=== PATIENT | female | born 1965 | race African-American/Black ===

== ENCOUNTER 2016-11-22 01:47 | Emergency (ER) ==
--- NOTE | 2016-11-22 02:47 | PROVIDER DOCUMENTATION ---
HPI-General Adult - General Source: patient - History of Present Illness -Gen Adult Nature of Presenting Problems: 51 year old F presents to the ED with a cc of numbness in left calf and left arm , and a "darkness" in left eye. PT states that she took half of a water pill and half of a Klor-con. PT states that she is suppose to take them every day but only takes them once a week. Pt states every time she takes these she always feel funny. Pt states that the reason she took the medications yesterday is because she was short of breath. PT states that she was suppose to follow up with her PCP for labs but did not go. PT states that she is feeling better but is stilling having some numbing sensation to left cheek. Location of Pain/Injury: reports: upper extremity, lower extremity Pain Radiation: reports: no radiation Severity: reports: mild Onset/Duration: reports: last night Timing: reports: still present Modifying Factors: improves with: nothing Associated Symptoms: reports: EENT symptoms, other (numbness) Similar Symptoms Previously?: Yes Recently seen or treated by another doctor?: No <Ladi Pascual - Last Filed: 11/22/16 02:51> <Jimbo Benitez - Last Filed: 11/22/16 05:09> - General Chief Complaint: Numbness Stated Complaint: HEART RACING/BP/ Time Seen by Provider: 11/22/16 01:49 Allergies/Adverse Reactions: Patient Allergies Allergy/AdvReac Type Severity Reaction Status Date / Time Penicillins AdvReac ANAPHYLAXIS Verified 05/31/16 14:15 Home Medications: Home Medication List Medication Instructions Recorded Confirmed Last Taken Type Potassium Chloride E.r. [Klor-Con] 20 meq PO DAILY PRN 04/10/15 05/31/16 History Torsemide 20 mg PO DAILY PRN 04/10/15 05/31/16 05/31/16 07:00 History Irbesartan [Avapro] 300 mg PO DAILY #0 04/12/15 05/31/16 05/30/16 Rx ROSUVAstatin [Crestor] 10 mg PO DAILY 01/30/16 05/31/16 1 Day Ago History Alprazolam [Xanax] 0.5 mg PO DAILY 05/31/16 05/31/16 05/31/16 07:00 History Metoprolol [Lopressor] 50 mg PO DAILY 05/31/16 05/31/16 05/31/16 07:00 History Review of Systems - Adult - REVIEW OF SYSTEMS - ADULT Constitutional: denies: chills, fever Eyes: reports: other ("darkness" to left eye) Ears, Nose, Mouth & Throat: reports: no symptoms reported Cardiovascular: denies: chest pain, palpitations Respiratory: reports: shortness of breath. denies: cough Gastrointestinal: denies: abdominal pain, nausea, vomiting Genitourinary: reports: no symptoms reported Musculoskeletal: reports: no symptoms reported Integumentary: reports: no symptoms reported Neurological: reports: numbness. denies: dizziness/vertigo, headache/migraines , slurred speech Psychiatric: reports: no symptoms reported Endocrine: reports: no symptoms reported Hematologic/Lymphatic: reports: no symptoms reported Allergic/Immunologic: reports: no symptoms reported All Other Systems: Reviewed and Negative <Ladi Pascual - Last Filed: 11/22/16 02:51> Past History - Adult - PAST MEDICAL HISTORY-ADULT Review of Records: reports: Nursing Assessment Review, Medications Reviewed Major Childhood Illnesses: reports: denies history Cardiovascular: reports: CHF, HTN Respiratory: reports: denies history Gastrointestinal: reports: denies history Obstetrical/Gynecological: reports: denies history Genitourinary: reports: denies history Musculoskeletal: reports: other (gout) Neurological: reports: TIA Endocrine/Immune: reports: denies history Other Conditions: reports: denies history - PRIOR SURGERIES/PROCEDURES Surgical/Procedure History: reports: hysterectomy, hernia repair - IMMUNIZATION STATUS Childhood Immunizations: See Nurse Assessment Flu Vaccine: See Nurse Assessment - FAMILY HISTORY Family History: reviewed, not pertinent - SOCIAL HISTORY Smoking: non-smoker Substance Use: none/never Alcohol Use Frequency: never <Ladi Pascual - Last Filed: 11/22/16 02:51> Physical Exam-General - PHYSICAL EXAM-ADULT Initial Vital Signs Reviewed: Yes - CONSTITUTIONAL General Appearance: appears well, alert, no apparent distress, obese - RESPIRATORY Respiratory: chest non-tender, lungs clear, normal breath sounds - CARDIOVASCULAR Cardiovascular: normal peripheral pulses, regular rate, rhythm, no edema - GASTROINTESTINAL (ABDOMEN) Abdominal Exam: non tender, soft - MUSCULOSKELETAL Extremity: normal inspection - SKIN Integumentary: normal color, normal turgor, warm/dry - PSYCHIATRIC Psych/Mental Status: normal mood/affect, normal thought content, normal thought process, oriented x 3 <Ladi Pascual - Last Filed: 11/22/16 02:51> Progress - EKG 1 Time of EKG reading by physician:: 03:30 EKG Read and Signed by:: Jimbo Benitez EKG Interpretation (*Must complete 3 of following elements*): Normal Rate: 66 Rhythm: NSR [place]: normal QRS: normal ID Interval: normal ST Wave: normal Prior EKG Comparison: no prior EKG - CT/MRI 1 CT Study: Head (NEGATIVE) <Jimbo Benitez - Last Filed: 11/22/16 05:09> Departure <Ladi Pascual - Last Filed: 11/22/16 02:51> - Departure Time of Disposition Order: 05:00 Certified Medical Emergency: Emergent <Jimbo Benitez - Last Filed: 11/22/16 05:09> - Departure DIAGNOSIS: TIA (transient ischemic attack) Qualifiers: Transient cerebral ischemia type: carotid artery syndrome (hemispheric) Qualified Code(s): G45.1 - Carotid artery syndrome (hemispheric) Disposition: HOME 01 Condition: Fair Additional Instructions: TAKE ENTERIC COATED ASPIRIN DAILY. SEE FAMILY DOCTOR re CONTROL OF BP AND CHOLESTEROL Attestation - Scribe Verification/Attestation Scribe:: Ladi Pascual Acting as Scribe for:: Jimbo Benitez Scribe documention review:: This chart was documented by a scribe and accurately reflects the service the provider performed and the decisions made by the provider. <Ladi Pascual - Last Filed: 11/22/16 02:51> Physician Attestation - Physician Attestation I, the provider, attest to the following statement:: Jimbo Benitez Physician documentation Attestation:: This documentation recorded by the scribe accurately reflects the service I personally performed and the decisions made by me. <Ladi Pascual - Last Filed: 11/22/16 02:51>
--- NOTE | 2016-11-22 03:32 | EKG Report ---
Test Performed on : 11/22/2016 03:22:30 AM Test Reason : pain Blood Pressure : / mmHG Vent. Rate : 066 BPM Atrial Rate : 066 BPM P-R Int : 174 ms QRS Dur : 080 ms QT Int : 408 ms P-R-T Axes : 064 -13 018 degrees QTc Int : 427 ms Normal sinus rhythm. Normal ECG When compared with ECG of 31-MAY-2016 12:51, No significant change was found Unconfirmed Result
[2016-11-22 03:40] LABS: MANUAL DIFF NEEDED? NO
[2016-11-22 04:00] LABS: BASO% 0.4 % (0.0-0.8); EOS# 0.18 X1000 (0.0-0.7); EOS% 2.3 % (0.0-10.0); HEMATOCRIT 40.1 % (37.0-47.0); HEMOGLOBIN 13.6 g/dL (12.0-16.0); IMM GRAN# 0.01 X1000 (0.0-0.04); IMM GRAN% 0.1 % (0.0-0.5); LYMPH# 2.63 X1000 (1.2-3.4); LYMPH% 33.6 % (20.5-51.1); MCH 29.9 PG (27-31); MCHC 33.9 g/dL (33-37); MCV 88.1 FL (81-99); MONO# 0.71 X1000 (0.11-0.59); MONO% 9.1 % (1.7-9.3); MPV 9.5 FL (7.4-10.4); NEUT% 54.5 % (42.2-75.2); PLT 290 X1000 (130-400); RBC 4.55 XMIL (4.2-5.4)
[2016-11-22] MEDS ORDERED: ASPIRIN PO ONE (04:02)
[2016-11-22 04:06] LABS: AGAP 13; ALBUMIN 4.4 g/dL (3.5-5.0); ALKALINE PHOSPHATASE 46 U/L (32-104); BUN 15 mg/dL (8-22); CALCIUM 9.5 mg/dL (8.8-10.2); CHLORIDE 100 mmol/L (98-107); COSMO 279; GOT 23 U/L (10-30); GPT 29 U/L (10-36); POTASSIUM 3.5 mmol/L (3.5-5.1); SODIUM 138 mmol/L (136-145); TCO2 26 mmol/L (25-35); TOTAL PROTEIN 7.3 g/dL (6.3-8.3)
[2016-11-22 05:21] VITALS: BP 139/089
--- NOTE | 2016-11-22 08:26 | Diag Imaging Result Document ---
PROCEDURE NAME: HEAD W/O CONTRAST - 11/22/2016 CT OF THE HEAD WITHOUT CONTRAST: There is no evidence of mass effect, bleed, or abnormal extra- axial fluid collection. There is mucosal thickening in what is visible in the maxillary sinuses to a slightly greater degree than on the previous study of 05/31/2016. Otherwise, the visualized paranasal sinuses are clear and the calvarium is intact. Overall, the appearance of the brain has not changed significantly since the previous study. IMPRESSION: No evidence of acute disease.
== END 2016-11-22 05:20 | disposition home or self-care (01) ==
LOC: P.ED 01:47
DX: G45.1 Carotid artery syndrome (hemispheric) (principal); R06.02 Shortness of breath; R20.0 Anesthesia of skin; Z86.73 Personal history of transient ischemic attack (TIA), and cerebral infarction without residual deficits; M10.9 Gout, unspecified; E66.9 Obesity, unspecified; Z79.899 Other long term (current) drug therapy
CPT/HCPCS: 70450; 80053; 84484; 85025; 93005